=== PATIENT | female | born 1950 | race African-American/Black ===

== ENCOUNTER 2017-01-16 03:22 | Emergency (ER) | payer MEDICARE, OTHER ==
[2017-01-16 03:32] VITALS: BP 136/73
--- NOTE | 2017-01-16 04:41 | ER Document Report ---
ED Eye Complaint - General Chief Complaint: Eye Pain Stated Complaint: LEFT EYE PAIN Notes: The patient is a 66-year-old female, past medical history right retinal detachment and reattachment, presents with pain in her left eye started earlier today after she woke up. She is unsure she scratched her eye. She denies blurry vision, headache, tearing, right eye pain, nausea or vomiting. TRAVEL OUTSIDE OF THE [place] IN LAST 30 DAYS: No - Related Data Allergies/Adverse Reactions: No Known Allergies Allergy (Verified 01/16/17 03:25) Past Medical History - General Information source: Patient - Social History Smoking Status: Never Smoker Chew tobacco use (# tins/day): No Frequency of alcohol use: None Drug Abuse: None Family History: Reviewed & Not Pertinent Patient has suicidal ideation: No Patient has homicidal ideation: No Renal/ Medical History: Denies: Hx Peritoneal Dialysis Review of Systems - Review of Systems Notes: REVIEW OF SYSTEMS: CONSTITUTIONAL: -fevers, -chills EENT: +left eye pain, -difficulty swallowing, -nasal congestion CARDIOVASCULAR:-chest pain, -syncope. RESPIRATORY: -cough, -SOB GASTROINTESTINAL: -abdominal pain, - nausea, -vomiting, -diarrhea GENITOURINARY: -dysuria, -hematuria MUSCULOSKELETAL: -back pain, -neck pain SKIN: -rash or skin lesions. HEMATOLOGIC: -easy bruising or bleeding. LYMPHATIC: -swollen, enlarged glands. NEUROLOGICAL: -altered mental status or loss of consciousness, -headache, - neurologic symptoms PSYCHIATRIC: -anxiety, -depression. ALL OTHER SYSTEMS REVIEWED AND NEGATIVE. Physical Exam - Vital signs Vitals: Temp Pulse Resp BP Pulse Ox 97.7 F 74 20 136/73 H 96 01/16/17 03:25 01/16/17 03:25 01/16/17 03:25 01/16/17 03:25 01/16/17 03:25 - Notes Notes: PHYSICAL EXAMINATION: GENERAL: Well-appearing, well-nourished and in no acute distress. HEAD: Atraumatic, normocephalic. EYES: Pupils equal round and reactive to light, extraocular movements intact, sclera anicteric, conjunctiva are normal. Small abrasion over left cornea at 9 o 'clock. Left eye pressure 18, 17, 17. Visual acuity in OS 20/40 and OD 20/50 ( uncorrected). ENT: nares patent, oropharynx clear without exudates. Moist mucous membranes. NECK: Normal range of motion, supple without lymphadenopathy LUNGS: Breath sounds clear to auscultation bilaterally and equal. No wheezes rales or rhonchi. HEART: Regular rate and rhythm without murmurs ABDOMEN: Soft, nontender, normoactive bowel sounds. No guarding, no rebound. No masses appreciated. EXTREMITIES: Normal range of motion, no pitting or edema. No cyanosis. NEUROLOGICAL: Cranial nerves grossly intact. Normal speech, normal gait. Normal sensory, motor, and reflex exams. PSYCH: Normal mood, normal affect. SKIN: Warm, Dry, normal turgor, no rashes or lesions noted. Course - Re-evaluation Re-evalutation: No evidence of acute closed angle glaucoma or retinal detachment. Has a small corneal abrasion in the left eye, which is causing the pain. No acute blurry vision. She usually wears glasses, but she does not have them in the ER. We'll send home with Abx drops and f/u at [facility] today. Given strict return precautions and she understands. - Vital Signs Vital signs: Temp Pulse Resp BP Pulse Ox 97.7 F 74 20 136/73 H 96 01/16/17 03:25 01/16/17 03:25 01/16/17 03:25 01/16/17 03:25 01/16/17 03:25 Discharge - Discharge Clinical Impression: Corneal abrasion Qualifiers: Encounter type: initial encounter Laterality: left Qualified Code(s): S05.02XA - Injury of conjunctiva and corneal abrasion without foreign body, left eye, initial encounter Condition: Good Disposition: HOME, SELF-CARE Additional Instructions: Corneal Abrasion You have a corneal abrasion, a scratch on the surface of the eye. The pain of a corneal abrasion feels like a sharp particle in the eye. Usually, antibiotics are placed in the eye to prevent infection. Occasionally, medication will be placed in the eye to dilate the pupil. This is done to relieve some of your discomfort and is only temporary. Pain medication may be required. Don't drive or operate machinery until you have the use of both your eyes. The abrasion usually is healed in one or two days. A follow-up examination to confirm healing is recommended. Call the doctor or return at once if you develop severe pain, decreasing vision, eye swelling, or purulent drainage. Prescriptions: Acetaminophen with Codeine [Tylenol #3 Tablet] 1 each PO Q4HP PRN #10 tablet PRN Reason: Ciprofloxacin HCl [Ciloxan 0.3% Oph Soln 2.5 ml] 1 drop OP Q6H #1 bottle Referrals: DELFINA PERYR DO [Primary Care Provider] - Follow up as needed DOE BUCHANAN DO [ACTIVE STAFF] - Follow up as needed
[2017-01-16] MEDS ORDERED: HYDROCODONE/ACETAMINOPHEN 5-325 MG TABLET PO ONE (04:46)
[2017-01-16] MEDS ORDERED: TETRACAINE HCL 0.5% OPH SOLN 2 ML OS ONE (04:47)
[2017-01-16] MEDS ORDERED: IBUPROFEN 600 MG TABLET PO ONE (04:47)
[2017-01-16] MEDS ORDERED: DIPH/PERTUSS(ACELL)/TETANUS VAC/PF 0.5 ML SYR (>=10YO) IM ONE (05:28)
== END 2017-01-16 05:41 | disposition home or self-care (01) ==
LOC: ER 03:22
DX: S05.02XA Injury of conjunctiva and corneal abrasion without foreign body, left eye, initial encounter (principal); H57.12 Ocular pain, left eye; X58.XXXA Exposure to other specified factors, initial encounter
CPT/HCPCS: 99283; 90715; A9270 ×2

== ENCOUNTER → 2017-06-13 | Outpatient (CLI) | payer MEDICARE, OTHER ==
[2017-06-13 12:22] LABS: ANION GAP 10 (5-19); BLOOD UREA NITROGEN 14 mg/dL (7-20); CALCIUM 9.1 mg/dL (8.4-10.2); CARBON DIOXIDE 27 mmol/L (22-30); CHLORIDE 104 mmol/L (98-107); CREATININE RESULT 0.88 mg/dL (0.52-1.25); GLUCOSE 100 mg/dL (75-110); POTASSIUM 3.9 mmol/L (3.6-5.0); SODIUM 141.4 mmol/L (137-145)
== END ==
LOC: OD 11:20
PROVIDERS: ATTEND Nurse Practitioner
DX: C54.1 Malignant neoplasm of endometrium (principal); E87.6 Hypokalemia; R97.8 Other abnormal tumor markers
CPT/HCPCS: 36415; 80048; 86304

== ENCOUNTER 2017-07-20 11:25 | Emergency (ER) | payer MEDICARE, OTHER ==
--- NOTE | 2017-07-20 11:41 | ER Document Report ---
ED Medical Screen (RME) - General Chief Complaint: Abdominal Pain Stated Complaint: ABDOMINAL PAIN Time Seen by Provider: 07/20/17 11:36 Mode of Arrival: Ambulatory Information source: Patient TRAVEL OUTSIDE OF THE [place] IN LAST 30 DAYS: No - HPI Patient complains to provider of: Vomiting, change in bowel movements Onset: Other - 2 weeks Onset/Duration: Gradual Notes: 07/20/17 11:41 Patient is a 66-year-old female with a history of uterine cancer with total hysterectomy, as well as some other type of abdominal carcinoma, who presents to the emergency room today complaining of worsening 2 week history of nausea and vomiting with a change in bowel movements, states she spoke with her oncologist at [place] who is concerned she may be developing a small bowel obstruction and sent her to the emergency room for evaluation - Related Data Allergies/Adverse Reactions: No Known Allergies Allergy (Verified 07/20/17 11:28) Past Medical History Renal/ Medical History: Denies: Hx Peritoneal Dialysis Physical Exam - Vital signs Vitals: Temp Pulse Resp BP Pulse Ox 98.5 F 105 H 20 151/82 H 98 07/20/17 11:29 07/20/17 11:29 07/20/17 11:29 07/20/17 11:29 07/20/17 11:29 Course - Vital Signs Vital signs: Temp Pulse Resp BP Pulse Ox 98.5 F 105 H 20 151/82 H 98 07/20/17 11:29 07/20/17 11:29 07/20/17 11:29 07/20/17 11:29 07/20/17 11:29
[2017-07-20 12:26] LABS: ABSOLUTE BASOPHILS # (AUTO) 0.1 10^3/uL (0.0-0.2); ABSOLUTE LYMPHOCYTES (AUTO) 0.5 10^3/uL (0.5-4.7); ABSOLUTE MONOCYTES (AUTO) 0.8 10^3/uL (0.1-1.4); ABSOLUTE NEUT (AUTO) 6.1 10^3/uL (1.7-8.2); EOSINOPHILS % (AUTO) 0.3 % (0-6); HEMATOCRIT 27.7 % (36.0-47.0); HEMOGLOBIN 9.2 g/dL (12.0-15.5); HGB HCT DIFFERENCE -0.1; LYMPHOCYTES % (AUTO) 6.1 % (13-45); MEAN CORPUSCULAR HEMOGLOBIN 30.8 pg (27.0-33.4); MEAN CORPUSCULAR HGB CONC 33.3 g/dL (32.0-36.0); MEAN CORPUSCULAR VOLUME 93 fl (80-97); MONOCYTES % (AUTO) 10.3 % (3-13); RED CELL DISTRIBUTION WIDTH 17.5 % (11.5-14.0); SEGMENTED NEUTROPHILS % (AUTO) 82.3 % (42-78); WHITE BLOOD COUNT 7.5 10^3/uL (4.0-10.5)
[2017-07-20 12:30] LABS: APPEARANCE,URINE SLIGHTLY-CLOUDY; BILIRUBIN,URINE NEGATIVE (NEGATIVE); GLUCOSE, URINE NEGATIVE (NEGATIVE); KETONES,URINE NEGATIVE (NEGATIVE); LEUKOCYTE ESTERASE,URINE TRACE (NEGATIVE); NITRITE,URINE NEGATIVE (NEGATIVE); PROTEIN,URINE 30 mg/dL (NEGATIVE); URINE SPECIFIC GRAVITY 1.016; UROBILINOGEN,URINE NEGATIVE mg/dL (<2.0)
[2017-07-20 12:39] LABS: ALANINE AMINOTRANSFERASE 32 U/L (9-52); ALBUMIN 3.8 g/dL (3.5-5.0); ALKALINE PHOSPHATASE 131 U/L (38-126); ANION GAP 14 (5-19); ASPARTATE AMINO TRANSFERASE 26 U/L (14-36); BILIRUBIN,DIRECT 0.4 mg/dL (0.0-0.4); BILIRUBIN,TOTAL 0.4 mg/dL (0.2-1.3); BLOOD UREA NITROGEN 14 mg/dL (7-20); CALCIUM 9.8 mg/dL (8.4-10.2); CARBON DIOXIDE 27 mmol/L (22-30); CHLORIDE 98 mmol/L (98-107); CREATININE RESULT 1.05 mg/dL (0.52-1.25); GLUCOSE 113 mg/dL (75-110); LIPASE 56.2 U/L (23-300); POTASSIUM 3.5 mmol/L (3.6-5.0); SODIUM 138.7 mmol/L (137-145); TOTAL PROTEIN 7.4 g/dL (6.3-8.2)
--- NOTE | 2017-07-20 13:09 | ER Document Report ---
ED GI/ - General Chief Complaint: Abdominal Pain Stated Complaint: ABDOMINAL PAIN Time Seen by Provider: 07/20/17 11:36 Mode of Arrival: Ambulatory Information source: Patient Notes: Patient is a 66-year-old female with past medical history as recorded including a total hysterectomy August 2015 secondary to uterine cancer with current abdominal carcinomatosis with the last chemo dose in March who presents today with the onset 2 weeks ago of some intermittent abdominal periumbilical "cramping". She states over the last 2 days it is been slightly worse. She denies any fevers, diarrhea, with the last episode of vomiting 4 days ago. She denies any radiation to her back or aggravating or relieving factors. Patient denies a history of bowel obstruction in the past. She denies a history of any other surgeries other than her uterine cancer surgery. TRAVEL OUTSIDE OF THE [place] IN LAST 30 DAYS: No - HPI Patient complains to provider of: Abdominal pain Onset: Other - See above Timing/Duration: Gradual, Intermittent Quality of pain: Other - See above Severity at maximum: Moderate Severity in ED: Mild Pain Level: 1 Location: Other - See above Vaginal bleeding (Compared to normal period): None Sexual history: Inactive Associated symptoms: Other - See above Exacerbated by: Denies Relieved by: Denies Similar symptoms previously: Yes Recently seen / treated by doctor: No - Related Data Allergies/Adverse Reactions: No Known Allergies Allergy (Verified 07/20/17 11:28) Past Medical History - General Information source: Patient - Social History Smoking Status: Unknown if Ever Smoked Cigarette use (# per day): No Chew tobacco use (# tins/day): No Smoking Education Provided: No Frequency of alcohol use: None Family History: Reviewed & Not Pertinent Renal/ Medical History: Denies: Hx Peritoneal Dialysis Review of Systems - Review of Systems Constitutional: denies: Fever Cardiovascular: denies: Chest pain, Palpitations Respiratory: denies: Short of breath Gastrointestinal: Vomiting Genitourinary: denies: Dysuria, Discharge Musculoskeletal: denies: Leg swelling Skin: Other - no hives. denies: Rash Neurological/Psychological: Other - no slurred speech -: Yes All other systems reviewed and negative Physical Exam - Vital signs Vitals: Temp Pulse Resp BP Pulse Ox 98.5 F 105 H 20 151/82 H 98 07/20/17 11:29 07/20/17 11:29 07/20/17 11:29 07/20/17 11:29 07/20/17 11:29 Notes: Reviewed vital signs and nursing note as charted by RN. CONSTITUTIONAL: Alert and oriented and responds appropriately to questions. Well -appearing; well-nourished HEAD: Normocephalic; atraumatic EYES: Sclerae non-icteric CARD: Regular rate and rhythm; no murmurs, no clicks, no rubs, no gallops; symmetric distal pulses RESP: Normal chest excursion without splinting or tachypnea; breath sounds clear and equal bilaterally; no wheezes, no rhonchi, no rales ABD/GI: Normal bowel sounds; non-distended; soft, non-tender to deep palpation of all 4 quadrants of the abdomen. There is no abdominal masses. Midline old surgical scar BACK: The back appears normal and is non-tender to palpation, there is no CVA tenderness EXT: Normal ROM in all joints; non-tender to palpation; no cyanosis, no effusions, no edema SKIN: Normal color for age and race; warm; dry; good turgor; capillary refill < 2 seconds; no acute lesions noted NEURO: Moves all extremities equally; Motor and sensory function intact PSYCH: The patient's mood and manner are appropriate. Grooming and personal hygiene are appropriate. Course - Re-evaluation Re-evalutation: 07/20/17 13:08 Given the above history and physical examination we will order urinalysis, basic labs, liver panel, lipase, and a CT scan of the abdomen and pelvis. Patient denies any and all chest pain and shortness of breath. Patient's pain is periumbilical. 07/20/17 13:19 EKG shows a heart rate of 91, normal sinus rhythm, normal axis, no obvious ST elevation or depression. Minimal LVH, flattening T waves in leads aVF, V3 through V6. Inverted T-wave in lead III. 07/20/17 15:58 Labs as recorded. No obvious urinary tract infection and no symptoms of dysuria. The appendix was not visualized but the patient has no tenderness on repeat examination. She specifically has no right lower quadrant tenderness. Patient does appear to have some increased metastases. I have provided the report to the patient for help with follow-up. Patient states she would like to go home at this time. I believe this is reasonable. Last hemoglobin recorded was in 2014. I performed a rectal examination showing no gross blood with a Hemoccult negative stool. - Vital Signs Vital signs: Temp Pulse Resp BP Pulse Ox 98.5 F 105 H 20 151/82 H 98 07/20/17 11:29 07/20/17 11:29 07/20/17 11:29 07/20/17 11:29 07/20/17 11:29 - Laboratory Result Diagrams: 07/20/17 12:15 07/20/17 12:15 Laboratory results interpreted by me: 07/20/17 07/20/17 07/20/17 12:15 12:15 12:15 RBC 3.00 L Hgb 9.2 L Hct 27.7 L RDW 17.5 H Seg Neutrophils % 82.3 H Lymphocytes % 6.1 L Potassium 3.5 L Est GFR (Non-Af Amer) 53 L Glucose 113 H Alkaline Phosphatase 131 H Urine Protein 30 H Ur Leukocyte Esterase TRACE H Urine Ascorbic Acid 20 H Discharge - Discharge Clinical Impression: Abdominal discomfort, Peritoneal metastases Condition: Good Disposition: HOME, SELF-CARE Additional Instructions: Come back immediately with any increased pain, fevers, vomiting, difficulty having a bowel movement, or any other acute problems. Please make sure that you follow-up with your primary doctor and oncologist as we have discussed and showed in the CT scan report we have provided. Referrals: DELFINA PERRY, [Primary Care Provider] - Follow up as needed
--- NOTE | 2017-07-20 15:44 | RADIOLOGY REPORT (SQ) ---
EXAM DESCRIPTION: CT ABD/PELVIS WITH IV ORAL COMPLETED DATE/TIME: 07/20/2017 3:29 pm REASON FOR STUDY: abdominal pain COMPARISON: 11/06/2016 TECHNIQUE: CT scan of the abdomen and pelvis performed with intravenous and oral contrast using sanya delilah scanning technique with dynamic intravenous contrast injection. Images reviewed with lung, soft t issue, and bone windows. Reconstructed coronal and sagittal MPR images reviewed. Delayed images for e valuation of the urinary system also acquired. All images stored on PACS. All CT scanners at this facility use dose modulation, iterative reconstruction, and/or weight based d osing when appropriate to reduce radiation dose to as low as reasonably achievable (ALARA). [facility]: Dose Right [facility]: CareDose [facility]: Dose Right [facility]: Teradose 4D [facility]: [employer] CONTRAST TYPE AND DOSE: contrast/concentration: Isovue 370.00 mg/ml; Total Contrast Delivered: 100.0 ml; Total Saline Delivered: 72.0 ml RENAL FUNCTION: BUN 14 creatinine 1.1 RADIATION DOSE: Up-to-date CT equipment and radiation dose reduction techniques were employed. CTDIv ol: 17.1 - 20.2 mGy. DLP: 2068 mGy-cm.. LIMITATIONS: None. FINDINGS: LOWER CHEST: Hiatal hernia. No nodules or infiltrates. LIVER: Normal size. No masses. No dilated ducts. SPLEEN: Normal size. No focal lesions. PANCREAS: No masses. No significant calcifications. No adjacent inflammation or peripancreatic fluid collections. Pancreatic duct not dilated. GALLBLADDER: No identified stones by CT criteria. No inflammatory changes to suggest cholecystitis. ADRENAL GLANDS: No significant masses or asymmetry. RIGHT KIDNEY AND URETER: No solid masses. No significant calcification. No hydronephrosis or hydroure ter. LEFT KIDNEY AND URETER: No solid masses. No significant calcification. No hydronephrosis or hydrouret er. AORTA AND VESSELS: No aneurysm. No dissection. Renal arteries, SMA, celiac without stenosis. RETROPERITONEUM: No retroperitoneal adenopathy, hemorrhage or masses. BOWEL AND PERITONEAL CAVITY: Increase in size and number of peritoneal implants. Extensive omental c aking. Moderate ascites. No free air. APPENDIX: Not visualized. PELVIS: Free fluid. No pelvic adenopathy. ABDOMINAL WALL: Umbilical hernia containing several soft tissue nodules suspicious for peritoneal imp lants. BONES: No acute findings. OTHER: No other significant finding. IMPRESSION: Progression of peritoneal metastasis. Moderate ascites. TECHNICAL DOCUMENTATION: JOB ID: [id number] Quality ID # [id number]: Final reports with documentation of one or more dose reduction techniques (e.g., Au tomated exposure control, adjustment of the mA and/or kV according to patient size, use of iterative reconstruction technique) 2010 [employer]- All Rights Reserved
[2017-07-20 16:48] VITALS: BP 126/81
--- NOTE | 2017-07-20 21:04 | EKG REPORT ---
SEVERITY:- BORDERLINE ECG - SINUS RHYTHM BORDERLINE T ABNORMALITIES, INFERIOR LEADS : Confirmed by: Hortencia Domínguez 20-Jul-2017 21:04:07
== END 2017-07-20 16:45 | disposition home or self-care (01) ==
LOC: ER 11:25
DX: C78.6 Secondary malignant neoplasm of retroperitoneum and peritoneum (principal); Z85.42 Personal history of malignant neoplasm of other parts of uterus; R10.9 Unspecified abdominal pain
CPT/HCPCS: 36415; 74177; 80053; 81001; 83605; 83690; 84484; 85025; 93005; 93010; 99284

== ENCOUNTER 2017-08-02 05:09 | Emergency (ER) | payer MEDICARE, OTHER ==
[2017-08-02] MEDS ORDERED: NORMAL SALINE 500 ML IV ONE (05:18)
--- NOTE | 2017-08-02 05:44 | ER Document Report ---
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 She states she thinks she is constipated. She was placed on lactulose by her primary care provider, states she is having watery stools but no change in her abdomen. She denies vomiting, fever, hematochezia. Currently on chemotherapy by Dr. Christie at [place]. TRAVEL OUTSIDE OF THE [place] IN LAST 30 DAYS: No - Related Data Allergies/Adverse Reactions: No Known Allergies Allergy (Verified 07/20/17 11:28) Past Medical History - Past Medical History Cardiac Medical History: Reports: Hx Hypertension Renal/ Medical History: Denies: Hx Peritoneal Dialysis Past Surgical History: Reports: Hx Hysterectomy, Hx Thyroid Surgery Physical Exam - Vital signs Vitals: Temp Pulse Resp BP Pulse Ox 97.9 F 104 H 20 160/78 H 98 08/02/17 05:14 08/02/17 05:14 08/02/17 05:14 08/02/17 05:14 08/02/17 05:14 - Abdominal Distension: Distended - Abdomen is distended but not notably tender, no guarding or rigidity Course - Re-evaluation Re-evalutation: Clinical picture more suggestive of abdominal ascites with lower extremity swelling in the picture of peritoneal metastasis. Patient is already on lactulose, she still wants x-ray imaging to evaluate her bowel, however I did discuss with her that I believe the swelling is not from stool but probably ascites. Abdomen is not significantly tender suggesting SBP. Patient is not febrile. - Vital Signs Vital signs: Temp Pulse Resp BP Pulse Ox 97.9 F 104 H 20 160/78 H 98 08/02/17 05:14 08/02/17 05:14 08/02/17 05:14 08/02/17 05:14 08/02/17 05:14
[2017-08-02 06:02] LABS: HEMATOCRIT 25.6 % (36.0-47.0); HEMOGLOBIN 8.7 g/dL (12.0-15.5); HGB HCT DIFFERENCE 0.5; MEAN CORPUSCULAR HEMOGLOBIN 30.5 pg (27.0-33.4); MEAN CORPUSCULAR HGB CONC 33.9 g/dL (32.0-36.0); MEAN CORPUSCULAR VOLUME 90 fl (80-97); RED BLOOD COUNT 2.84 10^6/uL (3.72-5.28); RED CELL DISTRIBUTION WIDTH 17.3 % (11.5-14.0); WHITE BLOOD COUNT 8.2 10^3/uL (4.0-10.5)
[2017-08-02 06:04] LABS: ALANINE AMINOTRANSFERASE 25 U/L (9-52); ALBUMIN 3.7 g/dL (3.5-5.0); ALKALINE PHOSPHATASE 129 U/L (38-126); ANION GAP 14 (5-19); ASPARTATE AMINO TRANSFERASE 23 U/L (14-36); BILIRUBIN,DIRECT 0.4 mg/dL (0.0-0.4); BILIRUBIN,TOTAL 0.4 mg/dL (0.2-1.3); BLOOD UREA NITROGEN 17 mg/dL (7-20); CALCIUM 9.8 mg/dL (8.4-10.2); CARBON DIOXIDE 24 mmol/L (22-30); CHLORIDE 99 mmol/L (98-107); CREATININE RESULT 1.33 mg/dL (0.52-1.25); GLUCOSE 119 mg/dL (75-110); POTASSIUM 3.2 mmol/L (3.6-5.0); SODIUM 137.3 mmol/L (137-145); TOTAL PROTEIN 7.2 g/dL (6.3-8.2)
--- NOTE | 2017-08-02 06:20 | RADIOLOGY REPORT (SQ) ---
EXAM DESCRIPTION: ACUTE ABDOMEN SERIES COMPLETED DATE/TIME: 08/02/2017 6:05 am REASON FOR STUDY: abdominal pain COMPARISON: CT abdomen and pelvis 07/20/2017. NUMBER OF VIEWS: Three views. TECHNIQUE: Frontal chest, supine abdomen and upright/decubitus abdomen radiographic images acquired. LIMITATIONS: None. FINDINGS: CHEST: Lungs clear of infiltrates. FREE AIR: None. No abnormal gas collections. BOWEL GAS PATTERN: There is small amount of gas in the stomach and in a bowel loop in the midline low er abdomen, otherwise, there is paucity of the bowel gas. No dilated bowel loops. CALCIFICATIONS: No suspicious calcifications. HARDWARE: None in the abdomen. SOFT TISSUES: No gross mass or suggestion of organomegaly. BONES: Degenerative changes in the spine. IMPRESSION: Nonspecific bowel gas pattern. TECHNICAL DOCUMENTATION: JOB ID: [id number] 2010 [employer]- All Rights Reserved
[2017-08-02 06:28] LABS: BAND NEUTROPHILS % (MANUAL) 2 % (3-5); BASOPHILS % (MANUAL) 0 % (0-2); EOSINOPHILS % (MANUAL) 0 % (0-6); LYMPHOCYTES % (MANUAL) 5 % (13-45); TOTAL CELLS COUNTED 100
[2017-08-02 06:30] LABS: ANISOCYTOSIS 1+; BURR CELLS SLIGHT; HYPOCHROMASIA SLIGHT; OVALOCYTES SLIGHT; POIKILOCYTOSIS SLIGHT; POLYCHROMASIA SLIGHT; TEAR DROP CELLS SLIGHT; TOXIC GRANULATION 1+
[2017-08-02 07:07] LABS: APPEARANCE,URINE CLEAR; BILIRUBIN,URINE NEGATIVE (NEGATIVE); GLUCOSE, URINE NEGATIVE (NEGATIVE); KETONES,URINE NEGATIVE (NEGATIVE); LEUKOCYTE ESTERASE,URINE TRACE (NEGATIVE); NITRITE,URINE NEGATIVE (NEGATIVE); PROTEIN,URINE NEGATIVE (NEGATIVE); URINE SPECIFIC GRAVITY 1.006; UROBILINOGEN,URINE NEGATIVE mg/dL (<2.0)
--- NOTE | 2017-08-02 07:07 | ER Document Report ---
ED GI/ <CARLIE WILSON - Last Filed: 08/02/17 07:22> - General Mode of Arrival: Ambulatory Information source: Patient TRAVEL OUTSIDE OF THE [place] IN LAST 30 DAYS: No - HPI Patient complains to provider of: Abdominal pain - discomfort Onset: Other - 2-3 weeks Associated symptoms: Other - see above <LOUIS MORGAN - Last Filed: 08/02/17 07:46> - General Chief Complaint: Abdominal Pain >50 Stated Complaint: ABDOMINAL PAIN Time Seen by Provider: 08/02/17 05:40 Notes: Patient is a 66 year old female who presents to the ED with complaints of abdominal discomfort for the past 2-3 weeks. Patient has seen her PCP and place don lactulose for possible constipation. Patient states the discomfort is worsening and nothing so far has helped it. Patient has a history of uterine cancer and peritoneal mets. She is followed by Dr. Caitlin Bergeron at [place]. She states she brought this issue up to her doctor yesterday and was told they wanted to see the CT results from the CT she had done 1 1/2 weeks ago. Patient denies any nausea or pain just states that she is having a lot of discomfort. She states she is also more distended than normal and she has more swelling in her bilateral lower extremities than what is baseline for her. Patient denies any nausea or vomiting. PCP: Dr. Sandoval Oncologist: Dr. Caitlin Bergeron at [place] (LOUIS MORGAN) - Related Data Allergies/Adverse Reactions: No Known Allergies Allergy (Verified 07/20/17 11:28) Past Medical History - General Information source: Patient - Social History Smoking Status: Unknown if Ever Smoked Family History: Reviewed & Not Pertinent Patient has suicidal ideation: No Patient has homicidal ideation: No - Past Medical History Cardiac Medical History: Reports: Hx Hypertension Renal/ Medical History: Denies: Hx Peritoneal Dialysis Malignancy Medical History: Reports: Other - uterine with peritoneal mets Past Surgical History: Reports: Hx Hysterectomy, Hx Thyroid Surgery <LOIUS MORGAN - Last Filed: 08/02/17 07:46> Review of Systems - Review of Systems Constitutional: No symptoms reported EENT: No symptoms reported Cardiovascular: No symptoms reported Respiratory: No symptoms reported Gastrointestinal: See HPI, Abdomen distended, Abdominal pain - discomfort. denies: Nausea, Vomiting Genitourinary: No symptoms reported Female Genitourinary: No symptoms reported Musculoskeletal: See HPI, Leg swelling, Ankle swelling Skin: No symptoms reported Hematologic/Lymphatic: No symptoms reported Neurological/Psychological: No symptoms reported <LOUIS MORGAN - Last Filed: 08/02/17 07:46> Physical Exam - General General appearance: Appears well, Alert In distress: None - HEENT Head: Normocephalic, Atraumatic Eyes: Normal Extraocular movements intact: Yes Pupils: PERRL - Respiratory Respiratory status: No respiratory distress Breath sounds: Normal - Cardiovascular Rhythm: Regular Heart sounds: Normal auscultation Murmur: No - Abdominal Inspection: Normal Distension: Distended - mild Tenderness: Nontender - no focal tenderness - Back Back: Normal - Extremities General upper extremity: Normal inspection General lower extremity: Normal inspection, Edema - mild, without pitting in bilateral lower extremities, Normal ROM - Neurological Neuro grossly intact: Yes - Psychological Associated symptoms: Normal affect, Normal mood - Skin Skin Temperature: Warm Skin Moisture: Dry Skin Color: Normal <LOUIS MORGAN - Last Filed: 08/02/17 07:46> - Vital signs Vitals: Temp Pulse Resp BP Pulse Ox 97.9 F 104 H 20 160/78 H 98 08/02/17 05:14 08/02/17 05:14 08/02/17 05:14 08/02/17 05:14 08/02/17 05:14 Course - Laboratory Result Diagrams: 08/02/17 05:40 08/02/17 05:40 <CARLIE WILSON - Last Filed: 08/02/17 07:22> - Laboratory Result Diagrams: 08/02/17 05:40 08/02/17 05:40 <LOUIS MORGAN - Last Filed: 08/02/17 07:46> - Re-evaluation Re-evalutation: 08/02/17 07:18 Pleasant 66-year-old female with an unfortunate situation with uterine cancer that has spread to the peritoneum. She has seen multiple doctors over the past week and a half, including her primary oncologist at [place] yesterday. She has ongoing swelling in her abdomen. This is likely due to the ascites that was noted on CT scan approximately a week and a half ago. She has been seen by her primary physician and was treated for constipation as well. She has no acute change control analyst the past 48 hours, no worsening. Her blood tests are overall reasonable, with slight anemia noted. There is no acute intervention indicated. I have discussed the issues with ascites with the patient and referred her to her oncologist and to her primary physician, Dr. Priest. The patient denies any pain or current nausea or vomiting. (CARLIE WILSON) - Vital Signs Vital signs: Temp Pulse Resp BP Pulse Ox 97.9 F 104 H 22 H 144/81 H 100 08/02/17 05:14 08/02/17 05:14 08/02/17 07:00 08/02/17 06:40 08/02/17 07:00 - Laboratory Laboratory results interpreted by me: 08/02/17 08/02/17 08/02/17 05:40 05:40 06:34 RBC 2.84 L Hgb 8.7 L Hct 25.6 L RDW 17.3 H Seg Neuts % (Manual) 88 H Band Neutrophils % 2 L Lymphocytes % (Manual) 5 L Abs Lymphs (Manual) 0.4 L Potassium 3.2 L Creatinine 1.33 H Est GFR ( Amer) 48 L Est GFR (Non-Af Amer) 40 L Glucose 119 H Alkaline Phosphatase 129 H Ur Leukocyte Esterase TRACE H Discharge <CARLIE WILSON - Last Filed: 08/02/17 07:22> <LOUIS MORGAN - Last Filed: 08/02/17 07:46> - Discharge Clinical Impression: Ascites, malignant, Abdominal discomfort Instructions: Abdominal Pain ([facility]) Additional Instructions: CT scan a week and a half ago showed that you have fluid building up in your belly cavity. If this worsens further, you may need to have this drawn off by needle. Speak with your oncologist and your primary physician about this. Continue your current medications and treatment regimen. Return to the emergency department if you have increasing abdominal pain, if you have nausea or vomiting, or if you have other urgent concerns. Referrals: DELFINA PRIEST DO [Primary Care Provider] - Follow up as needed Scribe Attestation: 08/02/17 07:21 I personally performed the services described in the documentation, reviewed and edited the documentation which was dictated to the scribe in my presence, and it accurately records my words and actions. (CARLIE WILSON) Scribe Documentation - Scribe Written by Scribmarlena:: nikolay Osullivan, 08/02/2017, 0745 acting as scribe for :: Emily <LOUIS MORGAN - Last Filed: 08/02/17 07:46>
[2017-08-02 07:55] VITALS: BP 151/80
== END 2017-08-02 07:55 | disposition home or self-care (01) ==
LOC: ER 05:09
DX: C55 Malignant neoplasm of uterus, part unspecified (principal); C78.6 Secondary malignant neoplasm of retroperitoneum and peritoneum; R18.0 Malignant ascites; I10 Essential (primary) hypertension; D64.9 Anemia, unspecified; Z90.710 Acquired absence of both cervix and uterus
CPT/HCPCS: 36415; 74022; 80053; 81001; 85025; 99284

== ENCOUNTER 2017-08-02 11:53 | Day surgery (SDC) | payer MEDICARE, OTHER ==
[2017-08-02 13:14] LABS: PROTHROMBIN TIME 14.7 SEC (11.4-15.4)
[2017-08-02 13:15] LABS: PARTIAL THROMBOPLASTIN TIME 43.9 SEC (23.5-35.8)
--- NOTE | 2017-08-02 15:54 | RADIOLOGY REPORT (SQ) ---
EXAM DESCRIPTION: U/S ABD PARACENTESIS COMPLETED DATE/TIME: 08/02/2017 3:37 pm REASON FOR STUDY: ASCITES COMPARISON CT abdomen pelvis 07/20/2017 LIMITATIONS: None. PROCEDURE: After obtaining informed consent, the patient was brought to the ultrasound suite. The p rocedure was performed with the patient on a gurney. Ultrasound was used to identify a prominent poc ket of ascites in the left lower quadrant. An appropriate access site was selected. The patient was prepped and draped in usual sterile fashion. The access site was anesthetized with 6 mL 1% lidocai ne. A Looh-Y-Wtnreozy needle was advanced into the fluid. After aspiration of fluid the needle, the catheter was advanced off the needle into the fluid. A total of 3,500 mL of clear prakash colored flu id was removed. The patient tolerated the procedure well left the department in satisfactory conditio n. No fluid was sent for testing IMPRESSION: Successful ultrasound-guided therapeutic paracentesis COMMENT: Patient medication list reviewed: Yes- Quality ID# [id number]:Eligible professional attests to doc umenting in the medical record they obtained, updated, or reviewed the patient's current medications. Quality ID #76: The patient was prepped and draped using maximum sterile barrier technique including cap, mask, sterile gown, sterile gloves, a large sterile sheet, hand hygiene, and 2% Chlorhexidine fo r cutaneous antisepsis. When ultrasound is used, sterile ultrasound techniques are followed requiring sterile gel and sterile probes. Quality ID #145: Final reports for procedures using fluoroscopy that document radiation exposure chaka lj, or exposure time and number of fluorographic images (if radiation exposure indices are not avail able) TECHNICAL DOCUMENTATION: JOB ID: [id number] [employer]- All Rights Reserved
[2017-08-02 16:43] VITALS: BP 127/67
== END 2017-08-02 16:30 | disposition home or self-care (01) ==
LOC: RAD 11:53
PROVIDERS: ATTEND Nuclear Medicine
PROC: 0W9G3ZZ Drainage of Peritoneal Cavity, Percutaneous Approach (ICD-10-PCS; principal; 2017-08-02)
DX: R18.8 Other ascites (principal); C54.1 Malignant neoplasm of endometrium; I10 Essential (primary) hypertension; E03.9 Hypothyroidism, unspecified; K21.9 Gastro-esophageal reflux disease without esophagitis
CPT/HCPCS: 36415; 49083; 74022; 80053; 81001; 85025; 85610; 85730; 99284

== ENCOUNTER → 2017-08-14 | Outpatient (CLI) | payer MEDICARE, OTHER ==
--- NOTE | 2017-08-14 15:49 | RADIOLOGY REPORT (SQ) ---
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 Left ventricular functional analysis performed. LIMITATIONS: None. FINDINGS: LEFT VENTRICULAR FUNCTION: EJECTION FRACTION: 75%. END-DIASTOLIC VOLUME: 79 mL. END-SYSTOLIC VOLUME: 19 mL. WALL MOTION: No focal wall motion abnormalities. OTHER: No other significant finding. IMPRESSION: NORMAL CARDIAC MUGA STUDY. NORMAL LEFT VENTRICULAR FUNCTION WITH left ventricular eject ion fraction calculated at 75%. TECHNICAL DOCUMENTATION: JOB ID: [id number] [employer]- All Rights Reserved
== END ==
LOC: RAD 13:25
PROVIDERS: ATTEND Internal Medicine
DX: Z08 Encounter for follow-up examination after completed treatment for malignant neoplasm (principal); C54.3 Malignant neoplasm of fundus uteri
CPT/HCPCS: 78472; A9560; Q9969

== ENCOUNTER 2017-08-19 07:25 | Day surgery (SDC) | payer MEDICARE, OTHER ==
[2017-08-19 08:53] LABS: PARTIAL THROMBOPLASTIN TIME 47.8 SEC (23.5-35.8)
[2017-08-19 09:04] LABS: BLOOD UREA NITROGEN 13 mg/dL (7-20); CREATININE RESULT 1.04 mg/dL (0.52-1.25)
[2017-08-19 09:52] LABS: HEMATOCRIT 22.9 % (36.0-47.0); HGB HCT DIFFERENCE -0.1; MEAN CORPUSCULAR HEMOGLOBIN 28.9 pg (27.0-33.4); MEAN CORPUSCULAR HGB CONC 33.2 g/dL (32.0-36.0); MEAN CORPUSCULAR VOLUME 87 fl (80-97); RED BLOOD COUNT 2.64 10^6/uL (3.72-5.28); RED CELL DISTRIBUTION WIDTH 17.6 % (11.5-14.0); WHITE BLOOD COUNT 8.4 10^3/uL (4.0-10.5)
[2017-08-19 10:14] LABS: HEMOGLOBIN 7.6 g/dL (12.0-15.5)
[2017-08-19] MEDS ORDERED: LIDOCAINE 1% INJ-PF (10 MG/ML) 30 ML SDV ONE (11:00)
[2017-08-19 13:08] VITALS: BP 125/81
--- NOTE | 2017-08-19 13:10 | RADIOLOGY REPORT (SQ) ---
EXAM DESCRIPTION: U/S ABD PARACENTESIS COMPLETED DATE/TIME: 08/19/2017 11:54 am REASON FOR STUDY: ASCITES COMPARISON Paracentesis 08/02/2017 CT abdomen pelvis 07/22/2017 LIMITATIONS: None. PROCEDURE: After obtaining informed consent, the patient was brought to the ultrasound suite. The p rocedure was performed with the patient on a gurney. Ultrasound was used to identify a prominent poc ket of ascites in the right lower quadrant. An appropriate access site was selected. The patient wa s prepped and draped in usual sterile fashion. The access site was anesthetized with 6 mL 1% lidoca ine. A 5 [place] Accustick catheter was advanced into the fluid. After aspiration of fluid the needl e, the catheter was advanced off the needle into the fluid. A total of 1,750 mL of prakash colored flu id was removed. The patient tolerated the procedure well left the department in satisfactory conditio n. No laboratory testing on the fluid. IMPRESSION: Successful ultrasound-guided therapeutic paracentesis COMMENT: Patient medication list reviewed: Yes- Quality ID# [id number]:Eligible professional attests to doc umenting in the medical record they obtained, updated, or reviewed the patient's current medications. Quality ID #76: The patient was prepped and draped using maximum sterile barrier technique including cap, mask, sterile gown, sterile gloves, a large sterile sheet, hand hygiene, and 2% Chlorhexidine fo r cutaneous antisepsis. When ultrasound is used, sterile ultrasound techniques are followed requiring sterile gel and sterile probes. Quality ID #145: Final reports for procedures using fluoroscopy that document radiation exposure chaka lj, or exposure time and number of fluorographic images (if radiation exposure indices are not avail able) TECHNICAL DOCUMENTATION: JOB ID: [id number] [employer]- All Rights Reserved
== END 2017-08-19 13:00 | disposition home or self-care (01) ==
LOC: RAD 07:25
PROVIDERS: ATTEND Student in an Organized Health Care Education/Training Program
PROC: 0W9F3ZZ Drainage of Abdominal Wall, Percutaneous Approach (ICD-10-PCS; principal; 2017-08-19)
DX: R18.0 Malignant ascites (principal); C55 Malignant neoplasm of uterus, part unspecified; I10 Essential (primary) hypertension; E89.0 Postprocedural hypothyroidism; Z79.01 Long term (current) use of anticoagulants
CPT/HCPCS: 36415; 84520; 82565; 85027; 85610; 85730; 49083; J3490

== ENCOUNTER 2017-09-03 08:22 | Day surgery (SDC) | payer MEDICARE, OTHER ==
--- NOTE | 2017-08-28 12:01 | HISTORY AND PHYSICAL E ---
History and Physical NAME: NATE RAMOS : 1950 AGE: 66Y ADMITTED: 09/03/2017 ROOM: HISTORY OF PRESENT ILLNESS: This is a 66-year-old female with a change in bowel habits presented with history of hiatus hernia, umbilical hernia. The patient did have a thyroid surgery. The patient did have total hysterectomy, she did have cancer of the uterus. The patient in reviewing of systems and old records she did have a colonoscopy in 2009. She did have diverticulosis and benign rectal polyp. Again, the patient did have a small 2 mm polyp at the junction between the cecum and the ascending. REVIEW OF SYSTEMS: CARDIAC: Hypertension. ENDOCRINE: Thyroidectomy. GASTROINTESTINAL: Colon diverticulosis. SOCIAL HISTORY: , does not smoke, does not drink. FAMILY HISTORY: Father had COPD. Mom had cardiac disease. MEDICATIONS: 1. Metoprolol. 2. Synthroid. 3. Tylenol. 4. Miralax. 5. Phenergan. PAST SURGICAL HISTORY: Subtotal thyroidectomy. PHYSICAL EXAMINATION: GENERAL: Pleasant, alert, oriented, in no acute distress. VITAL SIGNS: Blood pressure 140/80, pulse 80, respirations 20, temperature 98. HEAD, EARS, EYES, NOSE AND THROAT: Normal. ABDOMEN: Soft. NEUROLOGIC: Exam negative. NEUROLOGIC: Exam negative. CONCLUSION: 1. Colon screening. 2. Change in bowel habits. 3. Diverticulosis. PLAN: Colon exam. DICTATING PHYSICIAN: RADHA MARTINEZ M.D. [id number] Y#: [id number] ID: [id number] JOB#: [id number] ACCT: [id number] cc:RADHA MARTINEZ M.D., NAGESH M.D. >
[2017-09-03] MEDS ORDERED: LIDOCAINE 2% JELLY 30 ML TUBE ONE (09:26)
[2017-09-03] MEDS ORDERED: NALOXONE HCL INJ/PF 0.4 MG/1 ML SDV ONE (09:26)
[2017-09-03] MEDS ORDERED: ONDANSETRON HCL INJ/PF 4 MG/2 ML SDV ONE (09:26)
[2017-09-03] MEDS ORDERED: GLYCOPYRROLATE INJ 0.4 MG/2 ML VIAL ONE (09:26)
[2017-09-03] MEDS ORDERED: MIDAZOLAM 2 MG/2 ML INJ ONE ×2 (09:27)
[2017-09-03] MEDS ORDERED: FENTANYL CITRATE INJ/PF 100 MCG/2 ML AMPUL ONE (09:27)
[2017-09-03] MEDS ORDERED: GLUCAGON,HUMAN RECOMB 1 MG INJ ONE (09:28)
[2017-09-03] MEDS ORDERED: EPINEPHRINE INJ 1 MG/10 ML DISP.SYRIN ONE (09:28)
[2017-09-03] MEDS ORDERED: FLUMAZENIL INJ 0.5 MG/5 ML VIAL ONE (09:28)
[2017-09-03 11:05] VITALS: BP 144/65
--- NOTE | 2017-09-03 11:19 | OPERATIVE REPORT E ---
Operative Report NAME: NATE RAMOS : 1950 AGE: 66Y DATE OF SURGERY: 09/03/2017 ROOM: PREOPERATIVE DIAGNOSIS: Colon screening. POSTOPERATIVE DIAGNOSES: 1. No polyps. 2. Diverticulosis in cecum and ascending colon. 3. Occasional diverticulosis left colon. 4. External hemorrhoids. 5. Mild proctitis. OPERATION: Colonoscopy. SURGEON: RADHA MARTINEZ M.D. ANESTHESIA: Versed 2 and fentanyl 100. TISSUE REMOVED OR ALTERED: None. PROCEDURE: Rectal exam: Mild external hemorrhoids. Mild proctitis. Sigmoid normal. Descending colon normal. Occasional diverticulosis left colon. Transverse colon normal. Ascending colon diverticulosis. Cecum: Severe diverticulosis. Multiple diverticula in the cecum. Proximal ascending no polyps. CONCLUSION: Cecum and ascending diverticulosis. Transverse colon normal. Descending sigmoid normal. External hemorrhoids. Proctitis. PLAN: No polyps. Consider followup colonoscopy 3 years. DICTATING PHYSICIAN: RADHA MARTINEZ M.D. [id number] PHY#: [id number] ID: [id number] JOB#: [id number] ACCT: [id number] cc:RADHA MARTINEZ M.D., NAGESH M.D. >
[2017-09-03 11:41] LABS: HEMATOCRIT 33.8 % (36.0-47.0); HGB HCT DIFFERENCE -0.8; MEAN CORPUSCULAR HEMOGLOBIN 28.6 pg (27.0-33.4); MEAN CORPUSCULAR HGB CONC 32.5 g/dL (32.0-36.0); MEAN CORPUSCULAR VOLUME 88 fl (80-97); RED BLOOD COUNT 3.85 10^6/uL (3.72-5.28); RED CELL DISTRIBUTION WIDTH 17.7 % (11.5-14.0); WHITE BLOOD COUNT 10.8 10^3/uL (4.0-10.5)
[2017-09-03 12:17] LABS: ANISOCYTOSIS SLIGHT; BASOPHILS % (MANUAL) 0 % (0-2); EOSINOPHILS % (MANUAL) 0 % (0-6); LYMPHOCYTES % (MANUAL) 4 % (13-45); TOTAL CELLS COUNTED 100
--- NOTE | 2017-09-03 12:28 | DISCHARGE SUMMARY E ---
Discharge Summary NAME: NATE RAMOS : 1950 AGE: 66Y ADMITTED: 09/03/2017 DISCHARGED: 09/03/2017 The patient is 67-year-old female, underwent colon scan today, shows no polyps, no malignancy, severe diverticulosis cecum, ascending colon. She does have history of anemia, endometrial/uterine cancer, hypothyroid, hysterectomy, thyroidectomy, and patient's colon today shows no bleeding, no polyps. DISCHARGE PLAN: Soft diet, low residue 3 days. Baseline CBC. Consider followup colonoscopy 3 years. DICTATING PHYSICIAN: RADHA MARTINEZ M.D. [id number] PHY#: [id number] ID: [id number] JOB#: [id number] ACCT: [id number] cc:Nhan DORADO M.D. >
== END 2017-09-03 11:15 | disposition home or self-care (01) ==
LOC: END 08:22
PROVIDERS: ATTEND Specialist
PROC: 0DJD8ZZ Inspection of Lower Intestinal Tract, Via Natural or Artificial Opening Endoscopic (ICD-10-PCS; principal; 2017-09-03 09:00)
DX: Z12.11 Encounter for screening for malignant neoplasm of colon (principal); K57.30 Diverticulosis of large intestine without perforation or abscess without bleeding; K64.4 Residual hemorrhoidal skin tags; K62.89 Other specified diseases of anus and rectum; I10 Essential (primary) hypertension; E89.0 Postprocedural hypothyroidism; Z79.899 Other long term (current) drug therapy; Z85.42 Personal history of malignant neoplasm of other parts of uterus
CPT/HCPCS: 36415; 85025; G0121; J2250; J3010; J1610; J2405; 45378; J0171; J2310; J3490

== ENCOUNTER 2017-09-09 09:02 | Day surgery (SDC) | payer MEDICARE, OTHER ==
[~2017-09-09 09:02] MED LIST: CEFAZOLIN 1 GM/D5W RTU 1 GM/50 ML RTUPB IV PRN; DEXTROSE 5%-1/2 NORMAL SALINE 1,000 ML IV PRN
--- NOTE | 2017-09-09 09:04 | RADIOLOGY REPORT (SQ) ---
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 NUMBER OF VIEWS: Two view. TECHNIQUE: Frontal and lateral radiographic views of the chest acquired. LIMITATIONS: None. FINDINGS: LUNGS AND PLEURA: Low lung volumes. No opacities, masses or pneumothorax. No pleural eff usion. MEDIASTINUM AND HILAR STRUCTURES: No masses. No contour abnormalities. HEART AND VASCULAR STRUCTURES: Heart normal in size and contour. No evidence for failure. BONES: No acute findings. HARDWARE: None in the chest. OTHER: No other significant finding. IMPRESSION: LOW LUNG VOLUMES. NO SIGNIFICANT RADIOGRAPHIC FINDING IN THE CHEST. TECHNICAL DOCUMENTATION: JOB ID: [id number] [employer]- All Rights Reserved
[2017-09-09 09:20] LABS: HEMATOCRIT 31.1 % (36.0-47.0); HEMOGLOBIN 10.3 g/dL (12.0-15.5); HGB HCT DIFFERENCE -0.2; MEAN CORPUSCULAR HEMOGLOBIN 28.6 pg (27.0-33.4); MEAN CORPUSCULAR HGB CONC 33.1 g/dL (32.0-36.0); MEAN CORPUSCULAR VOLUME 86 fl (80-97); RED BLOOD COUNT 3.61 10^6/uL (3.72-5.28); RED CELL DISTRIBUTION WIDTH 17.8 % (11.5-14.0); WHITE BLOOD COUNT 7.7 10^3/uL (4.0-10.5)
[2017-09-09 09:38] LABS: ANION GAP 12 (5-19); BLOOD UREA NITROGEN 21 mg/dL (7-20); CALCIUM 9.2 mg/dL (8.4-10.2); CARBON DIOXIDE 23 mmol/L (22-30); CHLORIDE 108 mmol/L (98-107); CREATININE RESULT 0.97 mg/dL (0.52-1.25); GLUCOSE 89 mg/dL (75-110); POTASSIUM 3.5 mmol/L (3.6-5.0); SODIUM 142.9 mmol/L (137-145)
[2017-09-09] MEDS ORDERED: DIAZEPAM 5 MG TABLET ONE (11:22)
[2017-09-09] MEDS ORDERED: OXYCODONE-ACETAMINOPHEN 5-325 MG TABLET ONE (11:23)
[2017-09-09] MEDS ORDERED: MIDAZOLAM 2 MG/2 ML INJ ONE (11:30)
[2017-09-09] MEDS ORDERED: FENTANYL CITRATE INJ/PF 100 MCG/2 ML AMPUL ONE (11:30)
[2017-09-09] MEDS ORDERED: CEFAZOLIN 1 GM/D5W RTU 1 GM/50 ML RTUPB IV ONE (11:32)
[2017-09-09] MEDS ORDERED: LIDOCAINE 0.5% INJ-PF (5 MG/ML) 50 ML SDV ONE (11:33)
[2017-09-09] MEDS ORDERED: BACITRACIN INJ 50,000 UNIT VIAL ONE (11:34)
--- NOTE | 2017-09-09 12:38 | PDOC DISCHARGE SUMMARY ---
Discharge Summary (SDC) - Discharge Final Diagnosis: 1. Uterine cancer. 2. Hypothyroidism. 3. Hypertension. Date of Surgery: 09/09/17 Discharge Date: 09/09/17 Condition: Good Treatment or Instructions: Discharge home [after recovery per ASU criteria]. Diet , as tolerated, when fully awake advance as tolerated. Activities within moderation encouraged. Follow up in my office by appointment in about [1 week]. Call for appointment. Leave wounds [covered], [keep clean and dry, until office visit in 1 week]. Meds per med rec. Hold of on school/work [until evaluation in office]. May shower [in 48 hrs], [try to keep operated area as dry as possible]. Referrals: DELFINA PERRY, [Primary Care Provider] - Discharge Diet: As Tolerated Respiratory Treatments at Home: Deep Breathing/Coughing Discharge Activity: Activity As Tolerated Report the Following to Your Physician Immediately: Unusual Bleeding
--- NOTE | 2017-09-09 12:41 | Operative Report ---
Operative Report DATE OF SURGERY: 09/09/17 PREOPERATIVE DIAGNOSIS: 1. Uterine cancer. 2. Hypothyroidism. 3. Hypertension. POSTOPERATIVE DIAGNOSIS: 1. Uterine cancer. 2. Hypothyroidism. 3. Hypertension. OPERATION: 1. Ultrasound evaluation of the right internal jugular. 2. Insertion of Port-A-Cath via real-time access in the right internal jugular vein. 3. Angiogram and interpretation. SURGEON: ANDREW BARBOSA BRASS RECLAIMER: None ANESTHESIA: Moderate Sedation TISSUE REMOVED OR ALTERED: Not applicable. COMPLICATIONS: None ESTIMATED BLOOD LOSS: 5 mL INTRAOPERATIVE FINDINGS: Of a satisfactory right internal jugular vein to support Port-A-Cath. Estimated to be about 1.2 cm in diameter. Satisfactory access under ultrasound guidance. Satisfactory support of a Port-A-Cath via the right internal jugular vein. Smooth flow of contrast through the right atrium, ventricle and pulmonary outflow tract. Easy egress of blood and ingress of heparinized solution. PROCEDURE: After obtaining informed consent, the patient was taken to the [operating room] and positioned supine. The [right] neck and chest were prepared with chlorhexidine and draped out with sterile linen. After the " universal timeout ", in which it was verified that the patient continued to receive antibiotic, the procedure commenced. A steriley sheathed ultrasound probe was used to evaluate the [right] internal jugular vein. Local anesthesia was infiltrated adjacent to the probe. Access into the [right] internal jugular vein was obtained using a micropuncture needle, followed by micropuncture wire and then a micropuncture catheter. This was followed by introduction of a 0.035 guidewire the tip of which was placed down into the inferior vena cava . The port sites was marked , locally anesthetized and incision made. Dissection now proceeded to the deep subcutaneous subcutaneous tissues so that a pocket for the port was made. Meticulous hemostasis was secured and the catheter was tunneled between the 2 incisions. Proximally, the catheter was now positioned using a peel-away sheath. Distally the catheter was tailored to an appropriate length and then mated to the port using the contained fixating device. The port was now placed in the pocket and the catheter optimally positioned. The port was accessed with a Watson needle and an angiogram done under digital subtraction. The findings as dictated. With adequate and satisfactory positioning, both lumens of the chamber were irrigated with heparinized solution. The wounds were now closed using interrupted 3-0 PDS to the subcutaneous tissues and a continuous subcuticular suture of 4-0 Monocryl to the skin. These are reinforced with Steri-Strips over benzoin and then dressings applied. Time: 0.4 minute. Dose: 2.21 m Gy Contrast: 5 mls. Isovue 300. Copies of the dictated operative report for Dr. Andrew Gomez MD.
[2017-09-09 13:16] VITALS: BP 140/73
--- NOTE | 2017-09-09 16:20 | RADIOLOGY REPORT (SQ) ---
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 TECHNIQUE: Intra-operative images acquired during surgical procedure to evaluate progress. NUMBER OF IMAGES: Cine fluoroscopic images. LIMITATIONS: None. FINDINGS: Intra procedural imaging and fluoro during permanent central line placement by Dr. Jordin dorado IMPRESSION: Intra procedural imaging and fluoro COMMENT: Quality ID [id number]: Final reports for procedures using fluoroscopy that document radiation exp osure indices, or exposure time and number of fluorographic images (if radiation exposure indices are not available) Please consult full operative report of the attending physician for description of the procedure. TECHNICAL DOCUMENTATION: JOB ID: [id number] [employer]- All Rights Reserved
== END 2017-09-09 13:19 | disposition home or self-care (01) ==
LOC: SC 09:02
PROVIDERS: ATTEND Surgery
PROC: 05HM33Z Insertion of Infusion Device into Right Internal Jugular Vein, Percutaneous Approach (ICD-10-PCS; principal; 2017-09-09)
DX: C54.3 Malignant neoplasm of fundus uteri (principal); I10 Essential (primary) hypertension; E03.9 Hypothyroidism, unspecified; Z79.899 Other long term (current) drug therapy
CPT/HCPCS: 36415; 85027; 80048; 36561; 76937; 77001; 71020; Q9967; J2250; J3490 ×2; J0690; A9270 ×2; J3010; J1644

== ENCOUNTER 2017-10-14 10:25 | Outpatient (CLI) | payer MEDICARE, OTHER ==
[2017-10-14] MEDS ORDERED: NORMAL SALINE 1000 ML 1,000 ML IV PRN (11:41)
[2017-10-14] MEDS ORDERED: RINGERS SOLUTION,LACTATED 1,000 ML IV ONE (12:30)
[2017-10-14 13:22] VITALS: BP 136/76
== END 2017-10-14 14:29 | disposition home or self-care (01) ==
LOC: II 10:25 → 3S 10:28 → II 14:29
PROVIDERS: ATTEND Internal Medicine
PROC: 3E0337Z Introduction of Electrolytic and Water Balance Substance into Peripheral Vein, Percutaneous Approach (ICD-10-PCS; principal; 2017-10-14)
DX: E86.0 Dehydration (principal)
CPT/HCPCS: 96360; J7030